=== PATIENT | male | born 1980 | race Caucasian/White ===

== ENCOUNTER 2021-09-25 08:55 | Outpatient (CLI) | payer SELFPAY ==
[2021-09-25 13:04] LABS: ALB/GLOB Ratio 1.1 RATIO (0.9-2.4); AST(SGOT) 27 U/L (15-37); Alanine Aminotransfer ALT/SGPT 43 U/L (16-61); Albumin, Serum 3.8 g/dL (3.2-5.0); Alkaline Phosphatase 67 U/L (45-117); Anion Gap 6 (5-15); BUN 14 mg/dL (7-18); BUN/Creat Ratio 17.1 RATIO (10-20); Chloride 104 mmol/L (98-107); Creatinine, Serum 0.82 mg/dL (0.70-1.30); EST Glomerular Filtration Rate 109 mL/min (>60); Est Glom Filt Rate - Afr Amer 132 mL/min (>60); Globulin 3.6 g/dL (2.2-4.2); Glucose 117 mg/dL (74-106); Protein, Total 7.4 g/dL (6.4-8.2); Sodium Level 139 mmol/L (136-145)
== END 2021-09-25 23:59 | disposition home or self-care (01) ==
LOC: BIMLAB 08:56
PROVIDERS: PCP Family Medicine; Referring Provider Family Medicine; Visit Provider Family Medicine
DX: I10 Essential (primary) hypertension (principal)
CPT/HCPCS: 36415; 80053

== ENCOUNTER 2021-10-30 09:59 | Outpatient (CLI) | payer SELFPAY ==
[2021-10-30 12:05] LABS: Erythrocyte Sedimentation Rate 7 mm/hr (0-20)
[2021-10-30 12:26] LABS: Rheumatoid Factor < 10.0 IU/mL (<15)
== END 2021-10-30 23:59 | disposition home or self-care (01) ==
LOC: BIMLAB 09:59
PROVIDERS: PCP Family Medicine; Referring Provider Family Medicine; Visit Provider Family Medicine
DX: I10 Essential (primary) hypertension (principal); M25.50 Pain in unspecified joint
CPT/HCPCS: 36415; 85652; 86431

== ENCOUNTER → 2022-04-21 | Outpatient (CLI) | payer SELFPAY ==
[2022-04-21 12:18] LABS: Erythrocyte Sedimentation Rate 5 mm/hr (0-20)
[2022-04-21 12:25] LABS: Absolute Lymphocyte Count 1.43 X10^3/uL (0.83-4.51); Absolute Neutrophil Count 4.1 X10^3/uL (2.0-7.7); Basophil# 0.03 X10^3/uL; Basophil% 0.5 % (0-1); Eosinophil# 0.43 X10^3/uL; Eosinophils% 6.5 % (0-5); Hematocrit 46.5 % (40-54); Hemoglobin 15.1 g/dL (13.0-16.5); Lymphocyte # 1.43 X10^3/ul (0.83-4.51); Lymphocyte % 21.5 % (19-41); Mean Corp Hgb Conc 32.5 g/dL (32-36); Mean Corpuscular Volume 89.4 fL (80-94); Mean Platelet Vol. 8.8 fl (6.2-12.0); Monocyte# 0.61 X10^3/uL; Monocyte% 9.2 % (0-10); NRBC Flagged by Analyzer 0 % (0-5); Neutrophil # 4.14 X10^3/uL (2.7-7.7); Platelet Count 290 K/mm3 (150-450); RBC Distribution Width CV 13.2 % (11.6-14.6); RBC Distribution Width SD 43.1 fl (35.1-43.9); White Blood Count 6.7 K/mm3 (4.4-11.0)
[2022-04-21 12:53] LABS: Hemoglobin A1c 6.3 % (3.8-5.6)
== END | disposition home or self-care (01) ==
LOC: BIMLAB 11:04
PROVIDERS: PCP Family Medicine; Referring Provider Family Medicine; Visit Provider Family Medicine
DX: M25.50 Pain in unspecified joint (principal); B37.2 Candidiasis of skin and nail
CPT/HCPCS: 36415; 83036; 85025; 85652

== ENCOUNTER → 2022-10-21 | Outpatient (CLI) | payer SELFPAY ==
[2022-10-21 12:39] LABS: Anion Gap 6 (5-15); BUN 12 mg/dL (7-18); Calcium,Total 9.4 mg/dL (8.5-10.1); Chloride 108 mmol/L (98-107); Creatinine, Serum 0.86 mg/dL (0.70-1.30); EST Glomerular Filtration Rate 103 mL/min (>60); Est Glom Filt Rate - Afr Amer 125 mL/min (>60); Glucose 100 mg/dL (74-106); Potassium 3.9 mmol/L (3.5-5.1); Sodium Level 141 mmol/L (136-145)
[2022-10-21 13:39] LABS: Hemoglobin A1c 5.9 % (3.8-5.6)
== END | disposition home or self-care (01) ==
LOC: BIMLAB 10:39
PROVIDERS: PCP Family Medicine; Visit Provider Family Medicine
DX: I10 Essential (primary) hypertension (principal); R73.03 Prediabetes
CPT/HCPCS: 36415; 80048; 83036

== ENCOUNTER → 2022-10-27 | Outpatient (CLI) | payer SELFPAY ==
--- NOTE | 2022-10-27 13:01 | US_ITS ---
HISTORY: foreign body abdominal wall -- right lower quadrant. TECHNIQUE: Fuentes scale and color doppler imaging was performed of the abdominal wall over the right lower quadrant. 43 images. COMPARISON: None. FINDINGS: 2.2 cm long linear echogenic foreign body in transverse orientation identified in the soft tissues over the right lower quadrant. US/Abdomen Limited IMPRESSION: 2.2 cm linear foreign body in the soft tissues over the right lower quadrant. Electronically Signed: Kiara Silverio MD at 15:44 EDT ,
--- NOTE | 2022-10-27 13:40 | RAD_ITS ---
HISTORY: knee pain. TECHNIQUE: XR Knee 3 Views. COMPARISON: None. FINDINGS: BONES : 2.2 cm linear foreign body in the cortex of the proximal tibia. No acute fracture identified. Small bone islands in the distal femur and proximal tibia. JOINTS: No dislocation. Joint spaces maintained. Trace joint effusion. RAD/Knee 3 Views IMPRESSION: 2.2 cm linear foreign body in the proximal tibia. No acute fracture or dislocation identified in the right knee. Electronically Signed: Kiara Silverio MD at 15:55 EDT ,
== END | disposition home or self-care (01) ==
PROVIDERS: PCP Family Medicine; Referring Provider Family Medicine; Visit Provider Family Medicine
DX: M79.5 Residual foreign body in soft tissue (principal); M25.569 Pain in unspecified knee
CPT/HCPCS: 73562; 76705

== ENCOUNTER → 2023-07-15 | Outpatient (CLI) | payer SELFPAY ==
--- OUTSIDE RECORDS SUMMARY | 2023-07-15 10:49 | XMS RPT_ITS | CCD ---
Author Name Unknown Address [address] [place] [address] Organization [facility] Care Team Providers Care Field Applications Specialist Name Role Phone Unavailable Primary Care Provider Unavailabl e Allergies Allergy Classification Reported Allergen(s) Allergy Type Date of Onset Reaction(s) Facility (1 source) Penicillins Drug Allergy 11-23-[address] [facility] Problems Problem Classification Problem Date Documented Da te Episodic/Chronic Other skin disorders (1 source) Mass of neck; Translations: [Localized swelling, mass and lump, neck] Onset: 11-23-2014 11-23-2014 Episodic Results Test Name Value Interpretation Reference Range Facil ity Encounters Encounter Date Encounter Type Care Provider Facility Start: 04-30-2023 Refill Jennifer Gray MD Work Phone: Pulmonary Medicine Plan of Treatment Date Care Activity Detail Author Start: 03-19-2023 Influenza vaccination Influenza Vacc ine (#1) [facility] Start: 07-19-2022 Depression Assessment Depression Ass essment [facility] Start: 2013 Lipid 1996 panel - S sukumar or Plasma Lipid Screening [facility] Start: 1997 Urine microalbumin profile DTa P,Tdap,Td Vaccine (1 - Tdap) [facility] Start: 1996 Hepatitis C Screening Hepatitis C Sc shagufta [facility] Start: 1996 HIV Screening HIV Screening [facility] Start: 03-20-1979 Covid-19 Vaccine (#1) Covid-19 Vacci ne (#1) [facility] Start: 1978 Hepatitis B Vaccine (1 of 3 - 3-dose series) Hepatitis B Vaccine (1 of 3 - 3-dose series) [facility] Social History Date Type [facility]ail [facility] Start: 1978 Sex Assigned At Not on file [facility] Gender identity Not on file [facility] inic Summary Purpose Family History No Family History Records Found Advance Directives No Advanced Directives Records Found Additional Source Comments (unrecognized sect ion and content) No Status Records Found INFORMATION SOURCE (unrecogn ized section and content) Source Comments (unrecognize d section and content) In the event this informatio n is protected by the Federal Confidentiality of Alcohol and Drug Abuse Patient Records regulations: The Federal rules restrict any use of the information to criminally investigate or prosecute any alcohol or drug abuse patient.[facility] Reason for Visit (unrecogniz ed section and content) FOR RECORDS PERTAINING TO PATIENTS WHO ARE OR HAVE BEEN ENROLLED IN A CHEMICAL DEPENDENCY/SUBSTANCEABUSE PROGRAM, SOME INFORMATION MAY BE OMITTED. This clinical summary was aggregated from multiple sources. Caution should be exercised in using it in the provision of clinical care. This summary normalizes information from multiple sources, and as a consequence, information in this document may materially change the coding, format and clinical context of patient data. In addition, data may be omitted in some cases. CLINICAL DECISIONS SHOULD BE BASED ON THE PRIMARY CLINICAL RECORDS. [facility] [employer] [facility]. provides no warranty or guarantee of the accuracy or completeness of information in this document.
[2023-07-15 12:39] LABS: ALB/GLOB Ratio 1.1 RATIO (0.9-2.4); AST(SGOT) 33 U/L (15-37); Alanine Aminotransfer ALT/SGPT 35 U/L (16-61); Albumin, Serum 3.6 g/dL (3.2-5.0); Alkaline Phosphatase 63 U/L (45-117); Anion Gap 3 (5-15); BUN 13 mg/dL (7-18); BUN/Creat Ratio 15.8 RATIO (10-20); Calcium,Total 8.7 mg/dL (8.5-10.1); Chloride 107 mmol/L (98-107); Creatinine, Serum 0.82 mg/dL (0.70-1.30); EST Glomerular Filtration Rate 108 mL/min (>60); Est Glom Filt Rate - Afr Amer 130 mL/min (>60); Globulin 3.4 g/dL (2.2-4.2); Glucose 180 mg/dL (74-106); Potassium 3.6 mmol/L (3.5-5.1); Sodium Level 140 mmol/L (136-145)
[2023-07-15 12:45] LABS: Hemoglobin A1c 6.2 % (3.8-5.6)
== END | disposition home or self-care (01) ==
LOC: BIMLAB 10:12
PROVIDERS: PCP Family Medicine; Referring Provider Family Medicine; Visit Provider Family Medicine
DX: R73.03 Prediabetes (principal)
CPT/HCPCS: 36415; 80053; 83036

== ENCOUNTER → 2024-07-25 | Outpatient (CLI) | payer SELFPAY ==
--- NOTE | 2024-07-25 11:38 | RAD_ITS ---
HISTORY: radicular pain. TECHNIQUE: XR Spine Cervical 2 or 3 Views. COMPARISON: None. FINDINGS: VERTEBRAE: Vertebral body heights maintained. No acute fracture identified with limited evaluation of the C6-7 level that overlapping soft tissues. ALIGNMENT: No significant anterior or posterior subluxation. Preservation of the cervical lordosis. INTERVERTEBRAL DISCS: Disc heights preserved. SOFT TISSUES: No significant prevertebral soft tissue swelling. RAD/Cerv Spine 2 or 3 Views IMPRESSION: No acute fracture or dislocation identified in the cervical spine. Electronically Signed: Kiara Silverio MD at 8:59 EST ,
== END | disposition home or self-care (01) ==
PROVIDERS: PCP Family Medicine; Referring Provider Family Medicine; Visit Provider Family Medicine
DX: M54.2 Cervicalgia (principal)
CPT/HCPCS: 72040

== ENCOUNTER → 2024-08-10 | Outpatient (CLI) | payer SELFPAY ==
--- NOTE | 2024-08-10 14:21 | RAD_ITS ---
INDICATION: pain -- flex/ext EXAMINATION/TECHNIQUE: X-RAY - XR Spine Cervical 2 or 3 Views COMPARISON: 07/25/2024 cervical spine radiographs. FINDINGS: 2 Flexion-extension views only of the cervical spine. BONES: Normal anatomic alignment without evidence of fracture or subluxation. No concerning bony lesion or abnormal sclerosis to suggest lesion. DISCS/JOINTS: No evidence of spondylolisthesis or disc space widening with flexion and extension maneuvers. No significant degenerative change. SOFT TISSUES: Unremarkable. RAD/Cerv Spine 2 or 3 Views IMPRESSION: Unremarkable cervical spine. No evidence of spondylolisthesis or disc space widening with flexion and extension maneuvers. If there is persistent clinical concern for spine fracture in this trauma patient, recommend dedicated cervical spine CT. Electronically Signed: Mao Scott MD at 21:54 EST ,
== END | disposition home or self-care (01) ==
PROVIDERS: PCP Family Medicine; Referring Provider Student in an Organized Health Care Education/Training Program; Visit Provider Student in an Organized Health Care Education/Training Program
DX: M54.2 Cervicalgia (principal)
CPT/HCPCS: 72040